=== PATIENT | female | born 1995 | race Caucasian/White ===

== ENCOUNTER 2017-11-19 05:47 | Emergency (ER) | payer OTHER | END 2017-11-19 09:17 | disposition home or self-care (01) | LOC: M ED 05:47 | DX: R41.3 Other amnesia (principal); G43.909 Migraine, unspecified, not intractable, without status migrainosus; Z88.8 Allergy status to other drugs, medicaments and biological substances | CPT/HCPCS: 70450 ==

== ENCOUNTER 2017-11-26 09:54 | Emergency (ER) | payer OTHER ==
[2017-11-26] MEDS: NS 1,000 ML IV (11:15)
[2017-11-26 12:09] LABS: BASO % 0.5 % (0.0-1.0); EOS # 0.1 10^3/uL (0.0-0.50); EOS % 2.9 % (0.0-3.0); HEMATOCRIT 38.2 % (36.0-47.0); HEMOGLOBIN 12.9 g/dl (12.0-15.5); IMMATURE GRANULOCYTE % 0.2 % (0-3.0); LYMPH # 1.4 10^3/uL (1.5-6.5); LYMPH % 34.1 % (24.0-44.0); MEAN CORPUSCULAR HEMOGLOBIN 29.7 pg (27.0-33.0); MEAN CORPUSCULAR HGB CONC 33.8 g/dl (32.0-36.5); MONO # 0.4 10^3/uL (0.0-0.8); MONO % 9.3 % (0.0-5.0); NEUTROPHILS # 2.2 10^3/uL (1.8-7.7); PLATELET COUNT, AUTOMATED 208 10^3/uL (150-450); RED BLOOD COUNT 4.34 10^6/uL (4.00-5.40); WHITE BLOOD COUNT 4.1 10^3/uL (4.0-10.0)
[2017-11-26 12:20] LABS: ANION GAP 7 MEQ/L (8-16); BLOOD UREA NITROGEN 15 MG/DL (7-18); CALCIUM LEVEL 8.7 MG/DL (8.5-10.1); CARBON DIOXIDE LEVEL 26 MEQ/L (21-32); CHLORIDE LEVEL 108 MEQ/L (98-107); CREATININE FOR GFR 0.65 MG/DL (0.55-1.30); GLOMERULAR FILTRATION RATE > 60.0 (>60); GLUCOSE, FASTING 85 MG/DL (70-100); POTASSIUM SERUM 4.2 MEQ/L (3.5-5.1); SODIUM LEVEL 141 MEQ/L (136-145)
[2017-11-26 12:25] LABS: CONTROL LINE HCG INT CTR LINE PRESENT; HCG, SERUM QUALITATIVE NEGATIVE (NEGATIVE)
== END 2017-11-26 13:31 | disposition home or self-care (01) ==
LOC: M ED 09:54
DX: N93.8 Other specified abnormal uterine and vaginal bleeding (principal); R41.3 Other amnesia; Z88.8 Allergy status to other drugs, medicaments and biological substances
CPT/HCPCS: 76856

== ENCOUNTER 2018-01-11 13:26 | Emergency (ER) | payer OTHER ==
[2018-01-11 14:04] LABS: BASO % 0.3 % (0.0-1.0); EOS # 0.1 10^3/uL (0.0-0.50); EOS % 1.1 % (0.0-3.0); HEMATOCRIT 37.3 % (36.0-47.0); HEMOGLOBIN 12.9 g/dl (12.0-15.5); IMMATURE GRANULOCYTE % 0.3 % (0-3.0); LYMPH # 1.5 10^3/uL (1.5-6.5); LYMPH % 23.2 % (24.0-44.0); MEAN CORPUSCULAR HEMOGLOBIN 29.7 pg (27.0-33.0); MEAN CORPUSCULAR HGB CONC 34.6 g/dl (32.0-36.5); MEAN CORPUSCULAR VOLUME 85.7 fl (80.0-96.0); MONO # 0.4 10^3/uL (0.0-0.8); MONO % 6.1 % (0.0-5.0); NEUTROPHILS # 4.3 10^3/uL (1.8-7.7); PLATELET COUNT, AUTOMATED 205 10^3/uL (150-450); RED BLOOD COUNT 4.35 10^6/uL (4.00-5.40); RED CELL DISTRIBUTION WIDTH 11.7 % (11.5-14.5); WHITE BLOOD COUNT 6.3 10^3/uL (4.0-10.0)
[2018-01-11 14:13] LABS: KETONE, URINE AUTO RFX TRACE mg/dL (NEGATIVE); LEUKOCYTE ESTERASE UR AUTO RFX NEGATIVE (NEGATIVE); MUCUS, URINE RFX SMALL (NEGATIVE); NITRITE, URINE AUTO RFX NEGATIVE (NEGATIVE); RBC, URINE AUTO RFX 1 /HPF (0-3); SPECIFIC GRAVITY UR AUTO RFX 1.017 (1.002-1.035); SQUAM EPITHELIAL CELL UR AURFX 2 /HPF (0-6); WBC, URINE AUTO RFX 1 /HPF (0-3)
[2018-01-11 14:25] LABS: ANION GAP 7 MEQ/L (8-16); BLOOD UREA NITROGEN 10 MG/DL (7-18); CALCIUM LEVEL 9.3 MG/DL (8.5-10.1); CARBON DIOXIDE LEVEL 26 MEQ/L (21-32); CHLORIDE LEVEL 107 MEQ/L (98-107); GLOMERULAR FILTRATION RATE > 60.0 (>60); GLUCOSE, FASTING 116 MG/DL (70-100); POTASSIUM SERUM 4.4 MEQ/L (3.5-5.1); SODIUM LEVEL 140 MEQ/L (136-145)
== END 2018-01-11 17:22 | disposition home or self-care (01) ==
LOC: M ED 13:26
DX: O26.891 Other specified pregnancy related conditions, first trimester (principal); N83.11 Corpus luteum cyst of right ovary; Z88.8 Allergy status to other drugs, medicaments and biological substances; Z3A.01 Less than 8 weeks gestation of pregnancy
CPT/HCPCS: 76801

== ENCOUNTER 2018-02-06 12:02 | Emergency (ER) | payer OTHER ==
[2018-02-06] MEDS: ONDANSETRON 4MG/2ML VIAL (J2405) IV (12:45)
[2018-02-06] MEDS: NS 1,000 ML IV (12:45)
[2018-02-06 12:56] LABS: APPEARANCE, URINE CLOUDY (CLEAR); BACTERIA, URINE AUTO NEGATIVE (NEGATIVE); BILIRUBIN, URINE AUTO NEGATIVE (NEGATIVE); BLOOD, URINE BLOOD NEGATIVE (NEGATIVE); COLOR, URINE YELLOW (YELLOW); GLUCOSE, URINE (UA) AUTO NEGATIVE (NEGATIVE); KETONE, URINE AUTO NEGATIVE (NEGATIVE); LEUKOCYTE ESTERASE, URINE AUTO TRACE (NEGATIVE); MUCUS, URINE SMALL (NEGATIVE); NITRITE, URINE AUTO NEGATIVE (NEGATIVE); PROTEIN, URINE AUTO NEGATIVE (NEGATIVE); RBC, URINE AUTO 0 /HPF (0-3); SPECIFIC GRAVITY URINE AUTO 1.013 (1.002-1.035); SQUAMOUS EPITHELIAL CELL UR AU 7 /HPF (0-6); UROBILINOGEN, URINE AUTO 0.2 mg/dL (0.0-2.0); WBC, URINE AUTO 1 /HPF (0-3); YEAST LIKE CELL URINE AUTO MODERATE
[2018-02-06 13:11] LABS: ANION GAP 6 MEQ/L (8-16); BLOOD UREA NITROGEN 8 MG/DL (7-18); CALCIUM LEVEL 8.6 MG/DL (8.5-10.1); CARBON DIOXIDE LEVEL 28 MEQ/L (21-32); CHLORIDE LEVEL 105 MEQ/L (98-107); CREATININE FOR GFR 0.57 MG/DL (0.55-1.30); GLOMERULAR FILTRATION RATE > 60.0 (>60); GLUCOSE, FASTING 79 MG/DL (70-100); POTASSIUM SERUM 3.9 MEQ/L (3.5-5.1); SODIUM LEVEL 139 MEQ/L (136-145)
== END 2018-02-06 14:38 | disposition home or self-care (01) ==
LOC: M ED 12:02
DX: O21.0 Mild hyperemesis gravidarum (principal); Z88.8 Allergy status to other drugs, medicaments and biological substances; Z3A.11 11 weeks gestation of pregnancy
CPT/HCPCS: J2405

== ENCOUNTER 2018-02-08 10:52 | Emergency (ER) | payer OTHER ==
[2018-02-08] MEDS: NS 1,000 ML IV ×2 (11:28→13:15)
[2018-02-08 11:44] LABS: BASO % 0.2 % (0.0-1.0); EOS # 0.1 10^3/uL (0.0-0.50); HEMATOCRIT 35.3 % (36.0-47.0); HEMOGLOBIN 12.3 g/dl (12.0-15.5); IMMATURE GRANULOCYTE % 0.3 % (0-3.0); LYMPH # 1.2 10^3/uL (1.5-6.5); LYMPH % 20.3 % (24.0-44.0); MEAN CORPUSCULAR HEMOGLOBIN 29.4 pg (27.0-33.0); MEAN CORPUSCULAR HGB CONC 34.8 g/dl (32.0-36.5); MEAN CORPUSCULAR VOLUME 84.2 fl (80.0-96.0); MONO # 0.4 10^3/uL (0.0-0.8); MONO % 7.3 % (0.0-5.0); NEUTROPHILS # 4.3 10^3/uL (1.8-7.7); NEUTROPHILS % 70.9 % (36.0-66.0); PLATELET COUNT, AUTOMATED 192 10^3/uL (150-450); RED BLOOD COUNT 4.19 10^6/uL (4.00-5.40)
[2018-02-08 12:13] LABS: LACTIC ACID SEPSIS PROTOCOL 0.6 MMOL/L (0.4-2.0)
[2018-02-08 12:25] LABS: ALBUMIN 3.5 GM/DL (3.2-5.2); ALBUMIN/GLOBULIN RATIO 1.03 (1.00-1.93); ALKALINE PHOSPHATASE 50 U/L (45-117); ALT/SGPT 14 U/L (12-78); AMYLASE 129 U/L (25-115); ANION GAP 9 MEQ/L (8-16); AST/SGOT 8 U/L (7-37); BILIRUBIN,DIRECT < 0.1 MG/DL (0.0-0.2); BILIRUBIN,TOTAL 0.3 MG/DL (0.2-1.0); BLOOD UREA NITROGEN 10 MG/DL (7-18); CALCIUM LEVEL 8.4 MG/DL (8.5-10.1); CARBON DIOXIDE LEVEL 23 MEQ/L (21-32); CHLORIDE LEVEL 108 MEQ/L (98-107); CREATININE FOR GFR 0.44 MG/DL (0.55-1.30); GLOMERULAR FILTRATION RATE > 60.0 (>60); GLUCOSE, FASTING 74 MG/DL (70-100); HCG, SERUM QUANTITATIVE 121073 MIU/ML; LIPASE 103 U/L (73-393); POTASSIUM SERUM 3.8 MEQ/L (3.5-5.1); SODIUM LEVEL 140 MEQ/L (136-145); TOTAL PROTEIN 6.9 GM/DL (6.4-8.2)
[2018-02-08 13:20] LABS: APPEARANCE, URINE CLOUDY (CLEAR); BACTERIA, URINE AUTO 1+ (NEGATIVE); BILIRUBIN, URINE AUTO NEGATIVE (NEGATIVE); BLOOD, URINE BLOOD NEGATIVE (NEGATIVE); COLOR, URINE YELLOW (YELLOW); GLUCOSE, URINE (UA) AUTO NEGATIVE (NEGATIVE); KETONE, URINE AUTO NEGATIVE (NEGATIVE); LEUKOCYTE ESTERASE, URINE AUTO 1+ (NEGATIVE); MUCUS, URINE LARGE (NEGATIVE); NITRITE, URINE AUTO NEGATIVE (NEGATIVE); PROTEIN, URINE AUTO NEGATIVE (NEGATIVE); RBC, URINE AUTO 3 /HPF (0-3); SPECIFIC GRAVITY URINE AUTO 1.016 (1.002-1.035); SQUAMOUS EPITHELIAL CELL UR AU 13 /HPF (0-6); UROBILINOGEN, URINE AUTO 0.2 mg/dL (0.0-2.0); WBC, URINE AUTO 4 /HPF (0-3)
== END 2018-02-08 16:18 | disposition home or self-care (01) ==
LOC: M ED 10:52
DX: O21.0 Mild hyperemesis gravidarum (principal); Z3A.11 11 weeks gestation of pregnancy; Z79.899 Other long term (current) drug therapy; Z88.8 Allergy status to other drugs, medicaments and biological substances
CPT/HCPCS: 76801

== ENCOUNTER 2018-03-15 11:30 | Emergency (ER) | payer OTHER ==
[2018-03-15] MEDS: ONDANSETRON 4MG/2ML VIAL (J2405) IV (12:48)
[2018-03-15] MEDS: NS 1,000 ML IV (12:48)
[2018-03-15 13:15] LABS: ANION GAP 9 MEQ/L (8-16); BLOOD UREA NITROGEN 8 MG/DL (7-18); CALCIUM LEVEL 8.7 MG/DL (8.5-10.1); CARBON DIOXIDE LEVEL 25 MEQ/L (21-32); CHLORIDE LEVEL 106 MEQ/L (98-107); CREATININE FOR GFR 0.49 MG/DL (0.55-1.30); GLOMERULAR FILTRATION RATE > 60.0 (>60); GLUCOSE, FASTING 74 MG/DL (70-100); POTASSIUM SERUM 4.2 MEQ/L (3.5-5.1); SODIUM LEVEL 140 MEQ/L (136-145)
== END 2018-03-15 14:54 | disposition home or self-care (01) ==
LOC: M ED 11:30
DX: O21.0 Mild hyperemesis gravidarum (principal); Z88.8 Allergy status to other drugs, medicaments and biological substances; Z3A.16 16 weeks gestation of pregnancy
CPT/HCPCS: J2405

== ENCOUNTER 2018-03-18 06:56 | Emergency (ER) | payer OTHER ==
[2018-03-18] MEDS: ONDANSETRON 4MG/2ML VIAL (J2405) IV (07:15)
[2018-03-18] MEDS: NS 1,000 ML IV ×2 (07:15)
[2018-03-18 08:03] LABS: BASO % 0.2 % (0.0-1.0); EOS # 0.1 10^3/uL (0.0-0.50); EOS % 1.4 % (0.0-3.0); HEMATOCRIT 31.8 % (36.0-47.0); IMMATURE GRANULOCYTE % 0.6 % (0-3.0); LYMPH # 1.1 10^3/uL (1.5-6.5); LYMPH % 12.1 % (24.0-44.0); MEAN CORPUSCULAR HEMOGLOBIN 29.6 pg (27.0-33.0); MEAN CORPUSCULAR HGB CONC 34.6 g/dl (32.0-36.5); MEAN CORPUSCULAR VOLUME 85.5 fl (80.0-96.0); MONO # 0.6 10^3/uL (0.0-0.8); MONO % 7.1 % (0.0-5.0); NEUTROPHILS # 6.9 10^3/uL (1.8-7.7); NEUTROPHILS % 78.6 % (36.0-66.0); PLATELET COUNT, AUTOMATED 180 10^3/uL (150-450); RED BLOOD COUNT 3.72 10^6/uL (4.00-5.40); RED CELL DISTRIBUTION WIDTH 12.4 % (11.5-14.5); WHITE BLOOD COUNT 8.7 10^3/uL (4.0-10.0)
[2018-03-18 08:22] LABS: ALBUMIN 2.9 GM/DL (3.2-5.2); ALBUMIN/GLOBULIN RATIO 0.81 (1.00-1.93); ALKALINE PHOSPHATASE 58 U/L (45-117); ALT/SGPT 11 U/L (12-78); ANION GAP 7 MEQ/L (8-16); AST/SGOT 10 U/L (7-37); BILIRUBIN,TOTAL 0.3 MG/DL (0.2-1.0); BLOOD UREA NITROGEN 6 MG/DL (7-18); CALCIUM LEVEL 8.5 MG/DL (8.5-10.1); CARBON DIOXIDE LEVEL 25 MEQ/L (21-32); CHLORIDE LEVEL 107 MEQ/L (98-107); CREATININE FOR GFR 0.45 MG/DL (0.55-1.30); GLOMERULAR FILTRATION RATE > 60.0 (>60); GLUCOSE, FASTING 80 MG/DL (70-100); POTASSIUM SERUM 3.3 MEQ/L (3.5-5.1); SODIUM LEVEL 139 MEQ/L (136-145); TOTAL PROTEIN 6.5 GM/DL (6.4-8.2)
[2018-03-18 09:23] LABS: AMORPHOUS SEDIMENT RFX SMALL (NEGATIVE); KETONE, URINE AUTO RFX 2+ mg/dL (NEGATIVE); LEUKOCYTE ESTERASE UR AUTO RFX NEGATIVE (NEGATIVE); MUCUS, URINE RFX LARGE (NEGATIVE); NITRITE, URINE AUTO RFX NEGATIVE (NEGATIVE); RBC, URINE AUTO RFX 1 /HPF (0-3); SPECIFIC GRAVITY UR AUTO RFX 1.016 (1.002-1.035); SQUAM EPITHELIAL CELL UR AURFX 6 /HPF (0-6); WBC, URINE AUTO RFX 1 /HPF (0-3)
[2018-03-18] MEDS: POTASSIUM CHLORIDE 10 MEQ SR TABLET PO (09:37)
== END 2018-03-18 10:10 | disposition home or self-care (01) ==
LOC: M ED 06:56
DX: O21.9 Vomiting of pregnancy, unspecified (principal); E87.6 Hypokalemia
CPT/HCPCS: J2405

== ENCOUNTER 2018-03-26 19:57 | Emergency (ER) | payer OTHER ==
[2018-03-26] MEDS: NS 1,000 ML IV ×2 (20:44→22:59)
[2018-03-26 20:49] LABS: BASO % 0.4 % (0.0-1.0); EOS # 0.1 10^3/uL (0.0-0.50); HEMATOCRIT 38.2 % (36.0-47.0); HEMOGLOBIN 13.2 g/dl (12.0-15.5); IMMATURE GRANULOCYTE % 1.3 % (0-3.0); LYMPH # 1.8 10^3/uL (1.5-6.5); LYMPH % 20.1 % (24.0-44.0); MEAN CORPUSCULAR HEMOGLOBIN 30.1 pg (27.0-33.0); MEAN CORPUSCULAR HGB CONC 34.6 g/dl (32.0-36.5); MONO # 0.5 10^3/uL (0.0-0.8); MONO % 5.6 % (0.0-5.0); NEUTROPHILS # 6.5 10^3/uL (1.8-7.7); NEUTROPHILS % 71.6 % (36.0-66.0); PLATELET COUNT, AUTOMATED 249 10^3/uL (150-450); RED BLOOD COUNT 4.39 10^6/uL (4.00-5.40); RED CELL DISTRIBUTION WIDTH 12.8 % (11.5-14.5); WHITE BLOOD COUNT 9.1 10^3/uL (4.0-10.0)
[2018-03-26 21:11] LABS: ALBUMIN 3.4 GM/DL (3.2-5.2); ALBUMIN/GLOBULIN RATIO 0.94 (1.00-1.93); ALKALINE PHOSPHATASE 62 U/L (45-117); ALT/SGPT 17 U/L (12-78); ANION GAP 8 MEQ/L (8-16); AST/SGOT 11 U/L (7-37); BILIRUBIN,DIRECT < 0.1 MG/DL (0.0-0.2); BILIRUBIN,TOTAL 0.4 MG/DL (0.2-1.0); BLOOD UREA NITROGEN 10 MG/DL (7-18); CALCIUM LEVEL 9.2 MG/DL (8.5-10.1); CARBON DIOXIDE LEVEL 27 MEQ/L (21-32); CHLORIDE LEVEL 101 MEQ/L (98-107); CREATININE FOR GFR 0.51 MG/DL (0.55-1.30); GLOMERULAR FILTRATION RATE > 60.0 (>60); GLUCOSE, FASTING 74 MG/DL (70-100); LIPASE 111 U/L (73-393); MAGNESIUM LEVEL 1.8 MG/DL (1.8-2.4); POTASSIUM SERUM 3.7 MEQ/L (3.5-5.1); PREALBUMIN 24.6 MG/DL (20.0-40.0); SODIUM LEVEL 136 MEQ/L (136-145)
== END 2018-03-27 00:27 | disposition home or self-care (01) ==
LOC: M ED 03-27 00:27
DX: O26.892 Other specified pregnancy related conditions, second trimester (principal); I95.1 Orthostatic hypotension; O21.0 Mild hyperemesis gravidarum; Z88.8 Allergy status to other drugs, medicaments and biological substances; Z79.899 Other long term (current) drug therapy; Z3A.18 18 weeks gestation of pregnancy
CPT/HCPCS: 93005

== ENCOUNTER 2018-03-28 08:12 | Inpatient (IN) | payer OTHER ==
[2018-03-28 11:50] LABS: HEMATOCRIT 32.4 % (36.0-47.0); MEAN CORPUSCULAR HEMOGLOBIN 29.6 pg (27.0-33.0); MEAN CORPUSCULAR VOLUME 87.1 fl (80.0-96.0); PLATELET COUNT, AUTOMATED 207 10^3/uL (150-450); RED BLOOD COUNT 3.72 10^6/uL (4.00-5.40); RED CELL DISTRIBUTION WIDTH 12.6 % (11.5-14.5); WHITE BLOOD COUNT 6.3 10^3/uL (4.0-10.0)
[2018-03-28] MEDS: ONDANSETRON 4MG/2ML VIAL (J2405) IV ×2 (11:58→18:56)
[2018-03-28] MEDS: SCOPOLAMINE 1MG TRANSDERMAL PATCH TOP (12:25)
[2018-03-28 21:37] LABS: APPEARANCE, URINE CLEAR (CLEAR); BACTERIA, URINE AUTO 2+ (NEGATIVE); BILIRUBIN, URINE AUTO NEGATIVE (NEGATIVE); BLOOD, URINE BLOOD NEGATIVE (NEGATIVE); COLOR, URINE YELLOW (YELLOW); GLUCOSE, URINE (UA) AUTO NEGATIVE (NEGATIVE); KETONE, URINE AUTO TRACE mg/dL (NEGATIVE); LEUKOCYTE ESTERASE, URINE AUTO 2+ (NEGATIVE); MUCUS, URINE SMALL (NEGATIVE); NITRITE, URINE AUTO NEGATIVE (NEGATIVE); PROTEIN, URINE AUTO NEGATIVE (NEGATIVE); RBC, URINE AUTO 1 /HPF (0-3); SPECIFIC GRAVITY URINE AUTO 1.006 (1.002-1.035); SQUAMOUS EPITHELIAL CELL UR AU 2 /HPF (0-6); UROBILINOGEN, URINE AUTO 0.2 mg/dL (0.0-2.0); WBC, URINE AUTO 3 /HPF (0-3)
[2018-03-28 21:50] LABS: AMPHETAMINES URINE REFLEX NEGATIVE (NEGATIVE); BARBITURATES URINE REFLEX NEGATIVE (NEGATIVE); BENZODIAZEPINES URINE REFLEX NEGATIVE (NEGATIVE); CANNABINOIDS URINE REFLEX NEGATIVE (NEGATIVE); COCAINE METABOLITE URINE REFLE NEGATIVE (NEGATIVE); METHADONE URINE REFLEX NEGATIVE (NEGATIVE); OPIATES URINE REFLEX NEGATIVE (NEGATIVE); PHENCYCLIDINE URINE REFLEX NEGATIVE (NEGATIVE)
[2018-03-29] MEDS: ONDANSETRON 4MG/2ML VIAL (J2405) IV ×3 (03:34→19:32)
[2018-03-29 06:22] LABS: ALBUMIN 2.8 GM/DL (3.2-5.2); ALBUMIN/GLOBULIN RATIO 0.82 (1.00-1.93); ALKALINE PHOSPHATASE 52 U/L (45-117); ALT/SGPT 15 U/L (12-78); ANION GAP 9 MEQ/L (8-16); AST/SGOT 8 U/L (7-37); BILIRUBIN,TOTAL 0.3 MG/DL (0.2-1.0); BLOOD UREA NITROGEN 8 MG/DL (7-18); CALCIUM LEVEL 8.5 MG/DL (8.5-10.1); CARBON DIOXIDE LEVEL 25 MEQ/L (21-32); CHLORIDE LEVEL 105 MEQ/L (98-107); CREATININE FOR GFR 0.48 MG/DL (0.55-1.30); GLOMERULAR FILTRATION RATE > 60.0 (>60); GLUCOSE, FASTING 80 MG/DL (70-100); POTASSIUM SERUM 3.6 MEQ/L (3.5-5.1); SODIUM LEVEL 139 MEQ/L (136-145); TOTAL PROTEIN 6.2 GM/DL (6.4-8.2)
[2018-03-30] MEDS: ONDANSETRON 4MG/2ML VIAL (J2405) IV (03:55)
[2018-03-30 06:04] LABS: ALBUMIN 2.7 GM/DL (3.2-5.2); ALBUMIN/GLOBULIN RATIO 0.79 (1.00-1.93); ALKALINE PHOSPHATASE 49 U/L (45-117); ALT/SGPT 20 U/L (12-78); ANION GAP 8 MEQ/L (8-16); AST/SGOT 14 U/L (7-37); BILIRUBIN,TOTAL 0.5 MG/DL (0.2-1.0); BLOOD UREA NITROGEN 9 MG/DL (7-18); CALCIUM LEVEL 8.5 MG/DL (8.5-10.1); CARBON DIOXIDE LEVEL 25 MEQ/L (21-32); CHLORIDE LEVEL 105 MEQ/L (98-107); CREATININE FOR GFR 0.47 MG/DL (0.55-1.30); GLOMERULAR FILTRATION RATE > 60.0 (>60); GLUCOSE, FASTING 83 MG/DL (70-100); POTASSIUM SERUM 3.6 MEQ/L (3.5-5.1); SODIUM LEVEL 138 MEQ/L (136-145); TOTAL PROTEIN 6.1 GM/DL (6.4-8.2)
[2018-03-30] MEDS: ONDANSETRON 4 MG ORAL DISINTEGRATING TAB (Q0162 PER 1MG) PO ×2 (10:34→21:50)
[2018-03-31 07:14] LABS: ALBUMIN 2.7 GM/DL (3.2-5.2); ALBUMIN/GLOBULIN RATIO 0.79 (1.00-1.93); ALKALINE PHOSPHATASE 53 U/L (45-117); ALT/SGPT 21 U/L (12-78); ANION GAP 8 MEQ/L (8-16); AST/SGOT 13 U/L (7-37); BILIRUBIN,TOTAL 0.2 MG/DL (0.2-1.0); BLOOD UREA NITROGEN 10 MG/DL (7-18); CALCIUM LEVEL 8.5 MG/DL (8.5-10.1); CARBON DIOXIDE LEVEL 25 MEQ/L (21-32); CHLORIDE LEVEL 106 MEQ/L (98-107); CREATININE FOR GFR 0.55 MG/DL (0.55-1.30); GLOMERULAR FILTRATION RATE > 60.0 (>60); GLUCOSE, FASTING 90 MG/DL (70-100); POTASSIUM SERUM 3.8 MEQ/L (3.5-5.1); SODIUM LEVEL 139 MEQ/L (136-145); TOTAL PROTEIN 6.1 GM/DL (6.4-8.2)
[2018-03-31] MEDS: SCOPOLAMINE 1MG TRANSDERMAL PATCH TOP (10:10)
[2018-03-31] MEDS: ONDANSETRON 4 MG ORAL DISINTEGRATING TAB (Q0162 PER 1MG) PO (10:10)
== END 2018-03-31 13:00 | disposition home or self-care (01) | DRG 833 ==
LOC: M OBS 08:12 → M PCU 16:12
DX: O21.0 Mild hyperemesis gravidarum (principal); Z3A.17 17 weeks gestation of pregnancy; O34.211 Maternal care for low transverse scar from previous cesarean delivery; Z91.14 Patient's other noncompliance with medication regimen; R55 Syncope and collapse

== ENCOUNTER 2018-08-06 16:36 | Outpatient (CLI) | payer OTHER ==
[~2018-08-06] VITALS: Ht 160 cm; Wt 74.8 kg
[~2018-08-06 16:36] MED LIST: ACET500T15 PO; CEPH500C; IBUP-1022 PO; ONDA4TAB6; PRENTAB9 PO; PROM12SU PR; PROM25TA22; RANI15TA PO; TRANSDERM-SCOP; ZANTTAB PO; prenatal PO
[2018-08-06 17:01] VITALS: BP 129/60
[2018-08-06] MEDS ORDERED: diphenhydrAMINE 25 MG CAP PO ONE (17:30)
[2018-08-06] MEDS ORDERED: DIPH25CA PO (17:38)
[2018-08-06 18:00] LABS: HEMATOCRIT 31.6 % (36.0-47.0); HEMOGLOBIN 10.5 g/dl (12.0-15.5); MEAN CORPUSCULAR HEMOGLOBIN 29.2 pg (27.0-33.0); MEAN CORPUSCULAR HGB CONC 33.2 g/dl (32.0-36.5); MEAN CORPUSCULAR VOLUME 87.8 fl (80.0-96.0); PLATELET COUNT, AUTOMATED 172 10^3/uL (150-450); WHITE BLOOD COUNT 6.6 10^3/uL (4.0-10.0)
[2018-08-06 18:28] LABS: ALBUMIN 2.7 GM/DL (3.2-5.2); ALT/SGPT 13 U/L (12-78); BILIRUBIN,DIRECT < 0.1 MG/DL (0.0-0.2); BILIRUBIN,TOTAL 0.2 MG/DL (0.2-1.0); BLOOD UREA NITROGEN 13 MG/DL (7-18); CALCIUM LEVEL 8.2 MG/DL (8.5-10.1); CARBON DIOXIDE LEVEL 22 MEQ/L (21-32); CHLORIDE LEVEL 108 MEQ/L (98-107); CREATININE FOR GFR 0.44 MG/DL (0.55-1.30); GLOMERULAR FILTRATION RATE > 60.0 (>60); GLUCOSE, FASTING 106 MG/DL (70-100); POTASSIUM SERUM 3.9 MEQ/L (3.5-5.1); SODIUM LEVEL 137 MEQ/L (136-145); TOTAL PROTEIN 5.9 GM/DL (6.4-8.2)
--- NOTE | 2018-08-06 22:00 | REPVR ---
EXAM: US Biophysical Profile Without Non-Stress Test EXAM DATE/TIME: 08/06/18 (7:13pm) CLINICAL HISTORY: 23 year old female. Possible late decelerations. Check well being. TECHNIQUE: Imaging protocol: US biophysical profile without non-stress testing COMPARISON: US OB of 03/28/18 FINDINGS: The LMP is noted to be: 11/24/17 Based on the earlier sonogram, the current expected age = 36 weeks 2 days. Based on the earlier study, the OSVALDO = 09/01/18. The BPP score = 8/8 points. A normal score of 2 points was obtained for: tone, movements, respirations, and LIANA. heart beat is recorded at 136 bpm. The LIANA = 11.7 cm. (which is at the 40th percentile for this approximate age). The deepest fluid pocket = 7.1 cm. Umbilical cord S/D ratio = 2.25 (normal range). Anterior placenta. Nuchal cord not seen. A anatomic survey was not performed at this time. IMPRESSION: The BPP Profile score = 8/8 points. heartbeat is recorded at 136 bpm. The LIANA (11.7 cm) is at the 40th percentile for the current age. Electronically signed by: Lashaun Calle On 08/06/2018 22:00:01 PM
[2018-08-06 22:07] VITALS: BP 114/53
--- NOTE | 2018-08-06 22:19 | IPNPDOC ---
Text Note Date of Service The patient was seen on 08/06/18. NOTE 06AUG2018 23 yo presents to L&D Triage @ 36+2 by 6+5 wk US on 11JAN2018 with c/o severe itching for over a week. Denies DFM, LOF, CTXs, and vaginal bleeding. She has transferred to a civilian practice [id number]. Her PCM at [facility] is caring for her during her when she is unable to go to her civilian provider. Cholestasis labs were drawn at [facility] last 5 days ago. Liver enzymes were normal per patient. States she itching started on her abdomen about 10 days ago and progressed to her chest and back. Now has spread to her arms, legs, hands, and feet. Reports a rash, but states she unable to feel the rash. Reports a hx of eczema. S: Resting in triage bed on her right side scratching throughout the visit. Denies DFM, LOF, CTXs, and vaginal bleeding. Denies SI/HI Denies hx of abuse Denies tobacco/ETOH/illicit drug use O: VS- WNL, afebrile FHR-125. 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 BPP-12/05; No concerns for labor at this time P: Discharge to home. 06AUG2018 23 yo requesting discharge to home. Reviewed FHR tracing with Dr. Travis. Agrees d/c to home is appropriate with f/u with civilian provider. Pt sent home with strict return precautions. VS,Fishbone, I+O VS, Fishbone, I+O Laboratory Tests 08/06/18 17:30 Red Blood Count 3.60 L, Mean Corpuscular Volume 87.8, Mean Corpuscular Hemoglobin 29.2, Mean Corpuscular Hemoglobin Concent 33.2, Red Cell Distribution Width 12.4, Calcium Level 8.2 L, Aspartate Amino Transf (AST/SGOT) 9, Alanine Aminotransferase (ALT/SGPT) 13, Alkaline Phosphatase 159 H, Total Bilirubin 0.2, Direct Bilirubin < 0.1, Total Protein 5.9 L, Albumin 2.7 L Vital Signs Date Time Temp Pulse Resp B/P (MAP) Pulse Ox O2 Delivery O2 Flow Rate FiO2 08/06/18 17:01 98.0 91 20 129/60 (83) PERRY LAZAR CNM Aug 06, 2018 22:19
[2018-08-06 22:38] VITALS: BP 107/57
[2018-08-06 23:08] VITALS: BP 127/66
== END 2018-08-06 23:07 | disposition home or self-care (01) ==
LOC: M LDO 16:36
PROVIDERS: ATTEND Midwife
DX: O99.73 Diseases of the skin and subcutaneous tissue complicating the puerperium (principal); L29.8 Other pruritus; Z3A.36 36 weeks gestation of pregnancy
CPT/HCPCS: 59025; 76815; 76819; 76820; 80053; 82248; 85027; G0378; G0463

== ENCOUNTER 2018-09-18 16:52 | Emergency (ER) | payer OTHER ==
[~2018-09-18] VITALS: Ht 160 cm; Wt 67.2 kg
[~2018-09-18 16:52] MED LIST changes: -CYMB1CAP4 PO
[2018-09-18 17:59] LABS: HEMATOCRIT 41.7 % (36.0-47.0); HEMOGLOBIN 13.7 g/dl (12.0-15.5); MEAN CORPUSCULAR HEMOGLOBIN 28.5 pg (27.0-33.0); MEAN CORPUSCULAR HGB CONC 32.9 g/dl (32.0-36.5); MEAN CORPUSCULAR VOLUME 86.9 fl (80.0-96.0); PLATELET COUNT, AUTOMATED 337 10^3/uL (150-450); WHITE BLOOD COUNT 6.1 10^3/uL (4.0-10.0)
[2018-09-18 18:16] LABS: HCG, SERUM QUALITATIVE NEGATIVE (NEGATIVE)
[2018-09-18 18:31] LABS: AMPHETAMINES LEVEL URINE NEGATIVE (NEGATIVE); BARBITURATES URINE NEGATIVE (NEGATIVE); BENZODIAZEPINES URINE NEGATIVE (NEGATIVE); CANNABINOIDS URINE NEGATIVE (NEGATIVE); COCAINE METABOLITE URINE NEGATIVE (NEGATIVE); METHADONE URINE NEGATIVE (NEGATIVE); OPIATES URINE NEGATIVE (NEGATIVE); PHENCYCLIDINE URINE NEGATIVE (NEGATIVE)
[2018-09-18 18:34] LABS: ACETAMINOPHEN LEVEL < 2.0 UG/ML (10.0-30.0); ALBUMIN 3.6 GM/DL (3.2-5.2); ALT/SGPT 19 U/L (12-78); BILIRUBIN,DIRECT < 0.1 MG/DL (0.0-0.2); BILIRUBIN,TOTAL 0.3 MG/DL (0.2-1.0); BLOOD UREA NITROGEN 19 MG/DL (7-18); CARBON DIOXIDE LEVEL 25 MEQ/L (21-32); CHLORIDE LEVEL 106 MEQ/L (98-107); CREATININE FOR GFR 0.63 MG/DL (0.55-1.30); ETHYL ALCOHOL (ETHANOL) < 0.003 % (0.000-0.010); GLOMERULAR FILTRATION RATE > 60.0 (>60); GLUCOSE, FASTING 95 MG/DL (70-100); POTASSIUM SERUM 4.2 MEQ/L (3.5-5.1); SALICYLATE LEVEL < 1.7 MG/DL (5.0-30.0); SODIUM LEVEL 139 MEQ/L (136-145); TOTAL PROTEIN 6.9 GM/DL (6.4-8.2)
[2018-09-18] MEDS ORDERED: CYMB1CAP4 PO (19:42)
[2018-09-18 20:14] VITALS: BP 122/71
[2018-09-18] MEDS ORDERED: DULoxetine 20 MG CAP (CYMBALTA) PO ONE (20:15)
[2018-09-19] MEDS ORDERED: CYMB1CAP4 PO (16:54)
== END 2018-09-18 20:15 | disposition home or self-care (01) ==
LOC: M ED 16:52
DX: O99.345 Other mental disorders complicating the puerperium (principal); F53.0 Postpartum depression; Z79.899 Other long term (current) drug therapy; Z88.8 Allergy status to other drugs, medicaments and biological substances; R30.0 Dysuria
CPT/HCPCS: 36415; 80048; 80076; 80307; 81002; 84443; 84703; 85027; 87086; 99284; G0463; G0480

== ENCOUNTER → 2018-09-18 | Outpatient (REF) | payer OTHER ==
[~2018-09-18] MED LIST changes: +CYMB1CAP4 PO; +DIPH25CA PO
== END ==
LOC: M SFHCLERA 16:21
PROVIDERS: ATTEND Physician Assistant
DX: R30.0 Dysuria (principal)

== ENCOUNTER 2019-07-21 23:52 | Emergency (ER) | payer OTHER ==
[~2019-07-21] VITALS: Ht 160 cm; Wt 70.5 kg
[~2019-07-21 23:52] MED LIST changes: +CYMB1CAP4 PO; -DIPH25CA PO; +DIPH25CA32 PO; +ZANT150T40 PO; -ZANTTAB PO
[2019-07-22 00:07] VITALS: BP 111/55
[2019-07-22] MEDS ORDERED: BUSP10TA (00:19)
[2019-07-22] MEDS ORDERED: TOPI25TA10 (00:19)
[2019-07-22] MEDS ORDERED: MAG400TA (00:19)
[2019-07-22] MEDS ORDERED: PRAZ1CAP (00:19)
[2019-07-22] MEDS ORDERED: HYDR-643 (00:19)
[2019-07-22] MEDS ORDERED: SUMA25TA3 (00:19)
[2019-07-22] MEDS ORDERED: B-2100TA (00:19)
[2019-07-22] MEDS ORDERED: SERT-138 (00:19)
[2019-07-22] MEDS ORDERED: PROC10TA4 (00:19)
[2019-07-22] MEDS ORDERED: NAPR-837 PO (00:30)
[2019-07-22] MEDS ORDERED: ONDANSETRON 4 MG ORAL DISINTEGRATING TAB (Q0162 PER 1MG) PO ONE (00:30)
[2019-07-22] MEDS ORDERED: NAPROXEN 250 MG TAB PO ONE (00:30)
[2019-07-22] MEDS ORDERED: methocarbamoL 750 MG TAB PO ONE (00:30)
[2019-07-22] MEDS ORDERED: ROBA750T4 PO (00:30)
--- NOTE | 2019-07-22 17:44 | ECGEPIP ---
[facility] Test Date: 2019-07-22 Pat Name: CLAUDIA LUCERO Department: Room: - Gender: Female Technology Strategist: lawrence : 1995 Requested By: RAYMOND Dykes Order Number: [id number] Reading MD: Stacie Henley Measurements Intervals [place] Rate: 74 P: 33 RI: 173 QRS: 19 QRSD: 98 T: 44 QT: 382 QTc: 426 Interpretive Statements SINUS RHYTHM WITH SINUS ARRHYTHMIA NO CHANGE COMPARED TO 03/26/18 Electronically Signed on 07-22-2019 17:44:19 EDT by Stacie Henley
== END 2019-07-22 00:38 | disposition home or self-care (01) ==
LOC: M ED 23:52
DX: R07.9 Chest pain, unspecified (principal); R51 Headache; F33.9 Major depressive disorder, recurrent, unspecified; F41.1 Generalized anxiety disorder; Z88.8 Allergy status to other drugs, medicaments and biological substances; Z79.899 Other long term (current) drug therapy
CPT/HCPCS: 93005; 99284; Q0162

== ENCOUNTER 2020-07-12 19:07 | Emergency (ER) | payer OTHER ==
[~2020-07-12] VITALS: Ht 160 cm; Wt 82.7 kg
[~2020-07-12 19:07] MED LIST changes: +B-2100TA; +BUSP10TA; +HYDR-643; +MAGN400T35; +NAPR-837 PO; +PRAZ1CAP; +PROC10TA4; +ROBA750T4 PO; +SERT-138; +SUMA25TA3; +TOPI25TA10
[2020-07-12] MEDS ORDERED: BOTO10VL IM (19:15)
[2020-07-12] MEDS ORDERED: LIDOCAINE 4% CREAM 5GM (LMX4) TOP ONE (20:45)
[2020-07-12] MEDS ORDERED: ACETAMINOPHEN 500 MG TAB PO ONE (20:45)
[2020-07-12 21:30] LABS: BASO % 0.6 % (0.0-1.0); EOS # 0.1 10^3/uL (0.0-0.5); EOS % 1.4 % (0.0-3.0); HEMATOCRIT 39.7 % (36.0-47.0); HEMOGLOBIN 13.1 g/dl (12.0-15.5); LYMPH # 2.1 10^3/uL (1.5-5.0); LYMPH % 29.6 % (24.0-44.0); MEAN CORPUSCULAR HEMOGLOBIN 28.5 pg (27.0-33.0); MEAN CORPUSCULAR VOLUME 86.5 fl (80.0-96.0); MONO # 0.5 10^3/uL (0.0-0.8); NEUTROPHILS # 4.3 10^3/uL (1.5-8.5); NEUTROPHILS % 61.1 % (36.0-66.0); PLATELET COUNT, AUTOMATED 253 10^3/uL (150-450); RED BLOOD COUNT 4.59 10^6/uL (4.00-5.40)
[2020-07-12 21:50] LABS: ERYTHROCYTE SEDIMENTATION RATE 20 mm/hr (0-20)
--- NOTE | 2020-07-12 21:50 | REPVR ---
PROCEDURE INFORMATION: Exam: XR Chest Exam date and time: 07/12/2020 9:46 PM Age: 25 years old Clinical indication: Chest wall pain; Additional info: R breast, chest wall pain TECHNIQUE: Imaging protocol: XR of the chest Views: 2 views. COMPARISON: No relevant prior studies available. FINDINGS: Lungs: Unremarkable. No consolidation. Pleural spaces: Unremarkable. No pleural effusion. No pneumothorax. Heart/Mediastinum: Unremarkable. No cardiomegaly. Bones/joints: Unremarkable. IMPRESSION: No acute findings. Electronically signed by: Fei Hanna On 07/12/2020 21:50:27 PM
[2020-07-12] MEDS ORDERED: HYDR-3715 PO (22:27)
[2020-07-12] MEDS ORDERED: NORCO 5/325MG TABLET (BULK FOR ED) PO ONE (22:30)
[2020-07-12 22:43] VITALS: BP 137/65
== END 2020-07-12 23:09 | disposition home or self-care (01) ==
LOC: M ED 19:07
DX: N64.4 Mastodynia (principal); Z88.6 Allergy status to analgesic agent; Z88.8 Allergy status to other drugs, medicaments and biological substances; Z79.899 Other long term (current) drug therapy

== ENCOUNTER → 2020-12-31 | Outpatient (REF) | payer OTHER ==
[~2020-12-31] MED LIST changes: +BOTO10VL IM; +HYDR-3715 PO
== END ==
LOC: M LAB REF 19:40
PROVIDERS: ATTEND Physician Assistant
DX: R30.0 Dysuria (principal)

== ENCOUNTER 2021-01-17 14:25 | Emergency (ER) | payer OTHER ==
[~2021-01-17] VITALS: Ht 160 cm; Wt 80.6 kg
[2021-01-17 18:05] LABS: RSV AMPLIFICATION POSITIVE (NEGATIVE)
[2021-01-17] MEDS ORDERED: FLON1SPR NARES (18:17)
[2021-01-17 18:33] VITALS: BP 123/73
== END 2021-01-17 18:35 | disposition home or self-care (01) ==
LOC: M ED 14:25
DX: R50.9 Fever, unspecified (principal); B97.4 Respiratory syncytial virus as the cause of diseases classified elsewhere; G43.909 Migraine, unspecified, not intractable, without status migrainosus; F41.9 Anxiety disorder, unspecified; Z88.6 Allergy status to analgesic agent; Z88.8 Allergy status to other drugs, medicaments and biological substances; Z79.899 Other long term (current) drug therapy

== ENCOUNTER 2021-04-08 06:41 | Emergency (ER) | payer OTHER ==
[~2021-04-08] VITALS: Ht 160 cm; Wt 72.7 kg
[~2021-04-08 06:41] MED LIST changes: +FLON1SPR NARES
--- OUTSIDE RECORDS SUMMARY | 2021-04-08 06:51 | CCD ---
Author Author [facility] Organization [facility] Address Unknown Phone Unavailable Care Team Providers Care Entry Level Receptionist Name Role Phone DEISY, Jaswant LOPEZ PA Unavailable Unavailable LETTIERE, A JESSICA PA Unavailable Unavailable LETTIERE, A JESSICA PA Unavailable Unavailable LETTIERE, A JESSICA PA Unavailable Unavailable LETTIERE, A JESSICA PA Unavailable Unavailable LETTIERE, A JESSICA PA Unavailable Unavailable LETTIERE, A JESSICA PA Unavailable Unavailable LETTIERE, A JESSICA PA Unavailable Unavailable LETTIERE, A JESSICA PA Unavailable Unavailable LETTIERE, A JESSICA PA Unavailable Unavailable LETTIERE, A JESSICA PA Unavailable Unavailable LETTIERE, A JESSICA PA Unavailable Unavailable LETTIERE, A JESSICA PA Unavailable Unavailable LETTIERE, A JESSICA PA Unavailable Unavailable LETTIERE, A JESSICA PA Unavailable Unavailable LETTIERE, A JESSICA PA Unavailable Unavailable LETTIERE, A JESSICA PA Unavailable Unavailable LETTIERE, A JESSICA PA Unavailable Unavailable LETTIERE, A JESSICA PA Unavailable Unavailable LETTIERE, A JESSICA PA Unavailable Unavailable LETTIERE, A JESSICA PA Unavailable Unavailable LETTIERE, A JESSICA PA Unavailable Unavailable LETTIERE, A JESSICA PA Unavailable Unavailable LETTIERE, A JESSICA PA Unavailable Unavailable LETTIERE, A JESSICA PA Unavailable Unavailable LETTIERE, A JESSICA PA Unavailable Unavailable LETTIERE, A JESSICA PA Unavailable Unavailable LETTIERE, A JESSICA PA Unavailable Unavailable LETTIERE, A JESSICA PA Unavailable Unavailable LETTIERE, A JESSICA PA Unavailable Unavailable LETTIERE, A JESSICA PA Unavailable Unavailable Jayy ELLIS Unavailable Unavailable Re-disclosure Warning The records that you are about to access may contain information from federally-assisted alcohol or drug abuse programs. If such information is present, then the following federally mandated warning applies: This information has been disclosed to you from records protected by federal confidentiality rules (42 CFR part 2). The federal rules prohibit you from making any further disclosure of this information unless further disclosure is expressly permitted by the written consent of the person to whom it pertains or as otherwise permitted by 42 CFR part 2. A general authorization for the release of medical or other information is NOT sufficient for this purpose. The Federal rules restrict any use of the information to criminally investigate or prosecute any alcohol or drug abuse patient.The records that you are about to access may contain highly sensitive health information, the redisclosure of which is protected by Article 27-F of the [place] Public Health law. If you continue you may have access to information: Regarding HIV / AIDS; Provided by facilities licensed or operated by the [place] Office of Mental Health; or Provided by the [place] Office for People With Developmental Disabilities. If such information is present, then the following [facility] mandated warning applies: This information has been disclosed to you from confidential records which are protected by state law. State law prohibits you from making any further disclosure of this information without the specific written consent of the person to whom it pertains, or as otherwise permitted by law. Any unauthorized further disclosure in violation of state law may result in a fine or chcf sentence or both. A general authorization for the release of medical or other information is NOT sufficient authorization for further disc losure. Encounters Encounter Providers Location Date Indications Data Source(s ) Outpatient Attender: JESSICA martinez 12/31/2020 12:45:00 PM EDT [facility] ([facility], [facility]) Outpatient Referrer: ЮЛИЯ ELLIS 08/18/2020 12:00:00 AM [facility] Medications Medication Brand Name Start Date Product Form Dose Route Admi nistrative Instructions Pharmacy Instructions Status Indications Reaction Description Data Source(s) NITROFURANTOIN, MACROCRYSTALS 25 MG / Ni trofurantoin, Monohydrate 75 MG Oral Capsule [Macrobid] Macrobid 12/31/2020 12:00:00 AM EDT ORAL active [facility] ([facility]) Phenazopyridine hydrochloride 200 MG Delayed Release O ral Tablet Phenazopyridine HCL 12/31/2020 12:00:00 AM EDT ORAL active [facility] ([facility]) Fluconazole 150 MG Oral Tablet Fluconazole 12/31/2020 12:00:00 AM EDT ORAL active [facility] ([facility]) Insurance Providers Payer name Policy type / Coverage type Policy ID Covered green party ID Covered green party's relationship to gregorio Policy Gregorio Plan Information OTHER B Self OTHER B [id number] Self [id number] 'S ADMINISTRATION [id number] SP [id number] 'S ADMINISTRATION [id number] SP [id number] [facility] [id number] [facility] [id number] [facility] O [id number] S [id number] [facility] REG O [id number] O [id number] [facility] Commercial [id number] Family Dependent [id number] ANSI-Not a Secondary Insurance [id number] ANSI-Not a Secondary Insurance [id number] [facility] ACTIVE DUTY [id number] SP [id number] [facility] Claim Commercial [id number] Self [id number] HEA [id number] S [id number] FOR LIFE HEA [id number] S [id number] [facility] [id number] SP [id number] SELF PAY O [id number] S [id number] [facility] [id number] SP [id number] 22 'S ADMINISTRATION [id number] SP [id number] Opt[facility] [id number] 18 [id number] Problems, Conditions, and Diagnoses No Information Surgeries/Procedures Procedure Description Date Indications Data Source(s) OFFICE OUTPATIENT NEW 30 MINUTES 12/31/2020 12:00:00 A M [facility]) Results ID Date Data Source [id number] 01/17/2021 05:08:00 PM EDT [facility] Name Value Range Interpretation Code Description Data Dai rce(s) Supporting Document(s) SARS coronavirus 2 RNA [Presence] in Res piratory specimen by PANKAJ with probe detection NEGATIVE [facility] This lab was ordered by [facility] a nd reported by [facility]. ID Date Data Source [id number] 12/31/2020 03:39:00 PM EDT [facility] ([facility], [facility]) Name Value Range Interpretation Code Description Data Dai rce(s) Supporting Document(s) Bacteria identified in Urine by Culture Laboratory test result [facility] ([facility], [facility]) Rx Macrobid/Pyridium/diflucan Procedure Social History Code Duration Value Status Description Data Source(s ) Smoking 12/31/2020 12:00:00 AM EDT Patient has never smoked co mpleted Patient has never smoked [facility] ([facility]) Vital Signs ID Date Data Source UNK Name Value Range Interpretation Code Description Data Source(s) Diastolic blood pressure 74 mm[Hg] 74 mm[Hg] [facility] ([facility], [facility]) Heart rate 87 /min 87 /min [facility] ([facility], [facility]) Systolic blood pressure 130 mm[Hg] 130 mm[Hg] M [facility] ([facility], [facility]) Respiratory rate 18 /min 18 /min [facility] ( [facility]) Oxygen saturation in Arterial blood by Pulse oximetry 98 % 98 % [facility] ([facility], [facility]) Body temperature 97.8 [degF] 97.8 [degF] [facility] ([facility])
[2021-04-08] MEDS ORDERED: ACETAMINOPHEN 500 MG TAB PO ONE (10:30)
--- OUTSIDE RECORDS SUMMARY | 2021-04-08 10:36 | CCD ---
Author Author [facility] Organization [facility] Address Unknown Phone Unavailable Care Team Providers Care Lead Radiation Therapist Name Role Phone DEISY, Jaswant LOPEZ PA [...] is protected by Article 27-F of the [facility] Public Health law. If you continue you may have access to information: Regarding HIV / AIDS; Provided by facilities licensed or operated by the [facility] Office of Mental Health; or Provided by the [facility] Office for People With Developmental Disabilities. If such information is present, then the following [facility] mandated warning applies: This information has been [...] law may result in a fine or long-term sentence or both. A general authorization for the release of medical or other information is NOT sufficient authorization for further disc losure. Encounters Encounter Providers Location Date Indications Data Source(s ) Outpatient Attender: JESSICA martinez 12/31/2020 12:45:00 PM EDT [facility] ([facility] Outpatient Referrer: ЮЛИЯ ELLIS 08/18/2020 12:00:00 AM [facility] Medications Medication Brand Name Start Date Product Form Dose Route Admi nistrative Instructions Pharmacy Instructions Status Indications Reaction Description Data Source(s) NITROFURANTOIN, MACROCRYSTALS 25 MG / Ni trofurantoin, Monohydrate 75 MG Oral Capsule [Macrobid] Macrobid 12/31/2020 12:00:00 AM EDT ORAL active [facility] ([facility]) Phenazopyridine hydrochloride 200 MG Delayed Release O ral Tablet Phenazopyridine HCL 12/31/2020 12:00:00 AM EDT ORAL active [facility] ([facility]) Fluconazole 150 MG Oral Tablet Fluconazole 12/31/2020 12:00:00 AM EDT ORAL active [facility] ([facility]) Insurance Providers Payer name Policy type / Coverage type Policy ID Covered republican ID Covered republican's relationship to gregorio Policy Gregorio Plan Information OTHER B Self OTHER B [id number] Self [id number] 'S ADMINISTRATION [id number] SP [id number] 'S ADMINISTRATION [id number] SP [id number] [facility] [id number] [facility] [id number] [facility] PC O [id number] S [id number] [facility] REG O [id number] O [id number] [facility] Commercial [id number] Family Dependent [id number] ANSI-Not a Secondary Insurance [id number] ANSI-Not a Secondary Insurance [id number] [facility] ACTIVE DUTY [id number] SP [id number] [facility] Claim Commercial [id number] Self [id number] HEA [id number] S [id number] FOR LIFE HEA [id number] S [id number] [facility] [id number] SP [id number] SELF PAY O [id number] S [id number] [facility] [id number] SP [id number] 22 'S ADMINISTRATION [id number] SP [id number] Opt[facility] [id number] 18 [id number] Problems, Conditions, and Diagnoses No Information Surgeries/Procedures Procedure Description Date Indications Data Source(s) OFFICE OUTPATIENT NEW 30 MINUTES 12/31/2020 12:00:00 A M [facility]) Results ID Date Data Source [id number] 01/17/2021 05:08:00 PM EDT [facility] Name Value Range Interpretation Code Description Data Dai rce(s) Supporting Document(s) SARS coronavirus 2 RNA [Presence] in Res piratory specimen by PANKAJ with probe detection NEGATIVE [facility] This lab was ordered by [facility] a nd reported by [facility]. ID Date Data Source [id number] 12/31/2020 03:39:00 PM EDT [facility] ([facility], [facility]) Name Value Range Interpretation Code Description Data Dai rce(s) Supporting Document(s) Bacteria identified in Urine by Culture Laboratory test result [facility] ([facility], [facility]) Rx Macrobid/Pyridium/diflucan Procedure Social History Code Duration Value Status Description Data Source(s ) Smoking 12/31/2020 12:00:00 AM EDT Patient has never smoked co mpleted Patient has never smoked [facility] ([facility]) Vital Signs ID Date Data Source UNK Name Value Range Interpretation Code Description Data Source(s) Diastolic blood pressure 74 mm[Hg] 74 mm[Hg] [facility] ([facility], [facility]) Heart rate 87 /min 87 /min [facility] ([facility], [facility]) Systolic blood pressure 130 mm[Hg] 130 mm[Hg] M [facility] ([facility], [facility]) Respiratory rate 18 /min 18 /min [facility] ( [facility]) Oxygen saturation in Arterial blood by Pulse oximetry 98 % 98 % [facility] ([facility], [facility]) Body temperature 97.8 [degF] 97.8 [degF] [facility] ([facility])
[2021-04-08] MEDS ORDERED: KETOROLAC 30 MG/ML 1ML VIAL IV ONE (12:05)
[2021-04-08] MEDS ORDERED: NS 1,000 ML IV ONE (12:05)
[2021-04-08] MEDS ORDERED: GI COCKTAIL 50ML BTL(HYOSCYAMINE/MAALOX/LIDOCAINE VISCOUS)(1:3:1) PO ONE (12:05)
[2021-04-08] MEDS ORDERED: ONDANSETRON 4MG/2ML VIAL IV ONE (12:05)
[2021-04-08 12:45] LABS: BASO % 0.2 % (0.0-1.0); EOS % 0.2 % (0.0-3.0); HEMATOCRIT 38.5 % (36.0-47.0); LYMPH # 1.3 10^3/uL (1.5-5.0); LYMPH % 9.8 % (24.0-44.0); MEAN CORPUSCULAR HEMOGLOBIN 28.8 pg (27.0-33.0); MEAN CORPUSCULAR HGB CONC 33.8 g/dl (32.0-36.5); MEAN CORPUSCULAR VOLUME 85.2 fl (80.0-96.0); MONO # 0.9 10^3/uL (0.0-0.8); MONO % 6.7 % (2.0-8.0); NEUTROPHILS # 10.5 10^3/uL (1.5-8.5); NEUTROPHILS % 82.6 % (36.0-66.0); PLATELET COUNT, AUTOMATED 247 10^3/uL (150-450); RED BLOOD COUNT 4.52 10^6/uL (4.00-5.40); WHITE BLOOD COUNT 12.8 10^3/uL (4.0-10.0)
[2021-04-08 13:04] LABS: ERYTHROCYTE SEDIMENTATION RATE 54 mm/hr (0-20)
[2021-04-08 13:23] LABS: RSV AMPLIFICATION NEGATIVE (NEGATIVE)
[2021-04-08 13:57] LABS: HCG, SERUM QUALITATIVE NEGATIVE (NEGATIVE)
[2021-04-08] MEDS ORDERED: ISOVUE-370 76% 100ML VIAL As Ordered ONE (14:01)
--- NOTE | 2021-04-08 14:35 | REPVR ---
PROCEDURE INFORMATION: Exam: CT Neck With Contrast Exam date and time: 04/08/2021 2:02 PM Age: 26 years old Clinical indication: Dysphagia / difficulty swallowing; Additional info: Dysphagia, fever uko TECHNIQUE: Imaging protocol: Computed tomography images of the neck with contrast. Radiation optimization: All CT scans at this facility use at least one of these dose optimization techniques: automated exposure control; mA and/or kV adjustment per patient size (includes targeted exams where dose is matched to clinical indication); or iterative reconstruction. Contrast material: ISOVUE 370; Contrast volume: 75 ml; Contrast route: INTRAVENOUS (IV); COMPARISON: CT Head without contrast 11/19/2017 8:33 AM FINDINGS: Nasopharynx: There is diffuse thickening of the adenoids, with heterogeneous enhancement. Oropharynx: Unremarkable. No significant tonsillar enlargement. Hypopharynx: Unremarkable. Larynx: Unremarkable. Normal epiglottis. Retropharyngeal space: Unremarkable. Submandibular/Parotid glands: Normal. Glands are normal in size. Thyroid: Normal. No enlarged or calcified nodules. Lymph nodes: There is upper cervical lymphadenopathy, likely reactive in nature. There are enlarged retropharyngeal lymph nodes, right greater than left, also reactive. Trachea: Visualized trachea is unremarkable. Lungs: Unremarkable as visualized. Bones/joints: Unremarkable. No acute fracture. Soft tissues: Unremarkable. No significant soft tissue swelling. IMPRESSION: Findings compatible with adenoiditis. Reactive lymphadenopathy. Electronically signed by: Danielle Bowden On 04/08/2021 14:34:29 PM
--- NOTE | 2021-04-08 14:50 | REP ---
INDICATION: fever. COMPARISON: 07/12/2020. TECHNIQUE: Single portable AP view of the chest was performed. FINDINGS: There is no acute infiltrate or pulmonary edema. Lungs are clear. The heart is not significantly enlarged. The mediastinal silhouette is unremarkable. The visualized osseous structures are intact. IMPRESSION: No acute pulmonary disease. <Electronically signed by Herminio Winn > 04/08/21 [id number]
[2021-04-08] MEDS ORDERED: TESS100C PO (15:14)
[2021-04-08] MEDS ORDERED: LIDO2SOL17 PO (15:14)
[2021-04-08 15:20] LABS: MONO REFLEX EBV COMP NEGATIVE (NEGATIVE)
[2021-04-08 15:30] VITALS: BP 136/69
[2021-04-11 13:07] LABS: EBV AB TO NUCLEAR ANTIGEN 77.9 U/mL (0.0-17.9); EBV VIRAL CAPSID AG IgM <36.0 U/mL (0.0-35.9); Lyme Disease IgG/IgM Antibodie <0.91 ISR (0.00-0.90); Lyme Disease IgM Ab Quantitati <0.80 index (0.00-0.79)
== END 2021-04-08 15:32 | disposition home or self-care (01) ==
LOC: M ED 06:41
DX: R50.9 Fever, unspecified (principal); R05.9 Cough, unspecified; L04.9 Acute lymphadenitis, unspecified; J02.9 Acute pharyngitis, unspecified; Z88.6 Allergy status to analgesic agent; Z88.8 Allergy status to other drugs, medicaments and biological substances
CPT/HCPCS: 36415; 70491; 71045; 80047; 83605; 84702; 84703; 85025; 85652; 86140; 86308; 86617; 86664; 86665; 87040; 87631; 87804; 87880; 96361; 96374; 96375; 99284; J1885; J2405; Q9967